=== PATIENT | male | born 1995 | race Caucasian/White ===

== ENCOUNTER 2017-07-09 21:17 | Emergency (ER) | payer BC ==
[2017-07-09 21:34] VITALS: BP 113/64
[2017-07-09] MEDS ORDERED: Ibuprofen TAB* 400 MG PO ONE (21:35)
--- NOTE | 2017-07-09 21:52 | RAD ---
INDICATION: Left fourth digit injury COMPARISON: None TECHNIQUE: AP, lateral, and oblique views were obtained. FINDINGS: There is no acute fracture or dislocation. There is soft tissue swelling at the PIP joint. IMPRESSION: NO ACUTE FRACTURE.
--- NOTE | 2017-07-09 22:31 | UC ---
Hand/Wrist HPI - HPI Summary HPI Summary: 22 year old male here after an injury while playing football. He reports attempting to catch football, he hyperextended his fingers on left arm. Reports pain. No other injuries or fall. No numbness or tinling. - History Of Current Complaint Chief Complaint: UCUpperExtremity Stated Complaint: FINGER INJURY Time Seen by Provider: 07/09/17 21:58 Hx Obtained From: Patient Onset/Duration: Sudden Onset Severity Initially: Mild Severity Currently: Mild Pain Intensity: 8 Aggravating Factor(s): Movement Alleviating Factor(s): Rest, Ice Associated Signs And Symptoms: Positive: Bruising - Allergies/Home Medications Allergies/Adverse Reactions: Allergies Allergy/AdvReac Type Severity Reaction Status Date / Time No Known Allergies Allergy Verified 07/09/17 21:29 Home Medications: Home Medications Dextroamphetamine/Amphetamine [Adderall 30 mg-] 1 tab PO DAILY 07/09/17 [ History Confirmed 07/09/17] clonazePAM [Klonopin] 2 mg PO DAILY 07/09/17 [History Confirmed 07/09/17] PMH/Surg Hx/FS Hx/Imm Hx Previously Healthy: No - Surgical History Surgical History: None - Social History Alcohol Use: None Substance Use Type: None Smoking Status (MU): Never Smoked Tobacco Review of Systems Constitutional: Negative Skin: Negative Eyes: Negative ENT: Negative Respiratory: Negative Cardiovascular: Negative Gastrointestinal: Negative Genitourinary: Negative Motor: Negative Neurovascular: Negative Musculoskeletal: Edema Neurological: Negative Psychological: Negative All Other Systems Reviewed And Are Negative: Yes Physical Exam Triage Information Reviewed: Yes Appearance: Well-Appearing, No Pain Distress Vital Signs: Initial Vital Signs Temp 37.6 C 07/09/17 21:28 Pulse 93 07/09/17 21:28 Resp 18 07/09/17 21:28 BP 113/64 07/09/17 21:28 Pulse Ox 98 07/09/17 21:28 Dental Exam: Normal Musculoskeletal: Positive: Edema @ - left ring finger at pip TTP over PIP Neurological Exam: Normal Skin Exam: Normal Diagnostics - Radiology No standard instances Xray Interpretation: No Acute Changes Radiology Interpretation Completed By: Radiologist Hand/Wrist Course/Dx - Differential Dx/Diagnosis Differential Diagnosis/HQI/PQRI: Foreign Body, Strain, Tendonitis Provider Diagnoses: Finger strain. Pain medication. ICE. XR. Immobilization for comfort Discharge - Discharge Plan Condition: Good Disposition: HOME Patient Education Materials: Finger Sprain (ED) Referrals: Bryce Suoth MD [Primary Care Provider] - Lizzy Sears MD [Medical Doctor] - (Please call Dr. Sears's office if your symptoms do not improve in the next two weeks. ) Additional Instructions: Use hand as tolerated. If the pain does not improve, follow up with your orthopedics doctor.
== END 2017-07-09 22:30 | disposition home or self-care (01) ==
LOC: UCEAST 21:17
DX: S56.416A Strain of extensor muscle, fascia and tendon of left ring finger at forearm level, initial encounter (principal); X58.XXXA Exposure to other specified factors, initial encounter; Y93.61 Activity, american tackle football; Y92.9 Unspecified place or not applicable
CPT/HCPCS: 73140; 99211; A9270-GY; G0463